=== PATIENT | female | born 1980 | race Caucasian/White ===

== ENCOUNTER 2017-02-15 01:22 | Emergency (ER) | payer BC ==
[~2017-02-15] VITALS: Ht 154.9 cm; Wt 39.1 kg
[~2017-02-15 01:22] MED LIST: BACITAB PO; FLUC10TA PO; LEVA1TAB2 PO; TOPA100T12 PO; TOPA50TA8 PO; bentyl PO; cipro PO
[2017-02-15] MEDS ORDERED: KETOROLAC 30 MG/ML VIAL (J1885) IV ONE (01:30)
[2017-02-15 01:49] LABS: BASO # 0.1 K/mm3 (0.0-0.2); BASO % 1.4 % (0.0-1.0); EOS # 0.1 K/mm3 (0.0-0.50); EOS % 1.4 % (0.0-3.0); LARGE UNSTAINED CELL # 0.1 K/mm3 (0.0-0.4); LARGE UNSTAINED CELL % 2.2 % (0.0-4.0); LYMPH # 3.2 K/mm3 (1.5-4.5); LYMPH % 46.4 % (24.0-44.0); MEAN CORPUSCULAR HEMOGLOBIN 30.4 pg (27.0-33.0); MEAN CORPUSCULAR VOLUME 92.1 fl (80.0-96.0); MONO # 0.4 K/mm3 (0.0-0.8); MONO % 5.8 % (0.0-5.0); NEUTROPHILS # 2.8 K/mm3 (1.8-7.7); NEUTROPHILS % 42.8 % (36.0-66.0); PLATELET COUNT, AUTOMATED 295 k/mm3 (150-450); RED CELL DISTRIBUTION WIDTH 12.5 % (11.5-14.5); WHITE BLOOD COUNT 6.6 K/mm3 (4.0-10.0)
[2017-02-15 02:04] LABS: CONTROL LINE HCG INT CTR LINE PRESENT
[2017-02-15 02:12] LABS: ALBUMIN 4.4 GM/DL (3.2-5.2); ALBUMIN/GLOBULIN RATIO 1.42 (1.00-1.93); ALKALINE PHOSPHATASE 33 U/L (45-117); ALT/SGPT 20 U/L (12-78); AMYLASE 86 U/L (25-115); ANION GAP 7 MEQ/L (8-16); AST/SGOT 9 U/L (15-37); BILIRUBIN,DIRECT < 0.1 MG/DL (0.0-0.2); BILIRUBIN,TOTAL 0.2 MG/DL (0.2-1.0); BLOOD UREA NITROGEN 18 MG/DL (7-18); CALCIUM LEVEL 8.8 MG/DL (8.5-10.1); CARBON DIOXIDE LEVEL 25 MEQ/L (21-32); CHLORIDE LEVEL 109 MEQ/L (98-107); CREATININE FOR GFR 0.94 MG/DL (0.55-1.02); GLOMERULAR FILTRATION RATE > 60.0 (>60); GLUCOSE, FASTING 101 MG/DL (70-105); POTASSIUM SERUM 3.1 MEQ/L (3.5-5.1); SODIUM LEVEL 141 MEQ/L (136-145); TOTAL PROTEIN 7.5 GM/DL (6.4-8.2)
[2017-02-15] MEDS ORDERED: ONDANSETRON 4MG/2ML VIAL (J2405) As Ordered ONE (02:20)
--- NOTE | 2017-02-15 02:20 | REPUSA ---
CLINICAL HISTORY: Abdominal pain. TECHNIQUE: Multiple axial, sagittal and coronal CT images were obtained through the abdomen and pelvi s without administration of oral or IV contrast material. COMMENTS: Fluid filled small bowel loops in the pelvis. The liver is of uniform attenuation without mass or defect. There is no intra or extrahepatic biliary ductal dilatation. The spleen is normal. The gallbladder is within normal limits. The pancreas is of normal contour and attenuation characteristics. There is no evidence of adrenal mass. The kidneys are normal in size, shape and configuration. No renal or ureteral calculi are identified. There is no hydroureter or hydronephrosis. There is no evidence for appendicitis. There is no bowel wall thickening. No evidence for small or la rge bowel obstruction. There is no evidence of abdominal ascites or lymphadenopathy. There is no evidence of intrinsic or extrinsic bladder mass. There is no pelvic ascites or lymphadeno emmy. Images of the lung bases show no evidence of pleural or parenchymal mass. There are no pleural effusi ons. The bony structures are free of lytic or blastic lesions. Multilevel degenerative changes are seen in volving the thoracolumbar spine. Scattered calcifications are seen involving the aorta and major branches compatible with atherosclero sis. IMPRESSION: Fluid filled small bowel loops in the pelvis. Ileus versus developing enteritis. Thank you for your kind referral of this patient.
[2017-02-15] MEDS ORDERED: METOCLOPRAMIDE INJ 10MG/2ML VIAL (J2765) IV ONE ×2 (02:30→04:45)
[2017-02-15] MEDS ORDERED: NS 1,000 ML IV ONE ×2 (02:30→04:15)
[2017-02-15] MEDS ORDERED: ONDANSETRON 4MG/2ML VIAL (J2405) IV ONE (02:45)
[2017-02-15] MEDS ORDERED: MORPHINE 2 MG/ML 1ML SYRINGE IV ONE (02:45)
[2017-02-15] MEDS ORDERED: DOXY100C (02:59)
[2017-02-15] MEDS ORDERED: DICYCLOMINE 10 MG CAP PO ONE (04:00)
[2017-02-15] MEDS ORDERED: HYDROmorphone HCL 1 MG/ML SYRINGE (J1170) IV ONE (04:15)
[2017-02-15] MEDS ORDERED: TAMSULOSIN 0.4 MG CAP PO ONE (06:15)
[2017-02-15] MEDS ORDERED: ZOFR4TAB3 PO (07:53)
[2017-02-15] MEDS ORDERED: REGL10TA6 PO (07:54)
[2017-02-15] MEDS ORDERED: CITRSOL8 PO (07:55)
[2017-02-15] MEDS ORDERED: KETO10TAB PO (07:56)
[2017-02-15 08:05] VITALS: BP 88/59
== END 2017-02-15 08:07 | disposition home or self-care (01) ==
LOC: M ED 01:22
DX: R10.31 Right lower quadrant pain (principal); R11.0 Nausea; E03.9 Hypothyroidism, unspecified; Z79.899 Other long term (current) drug therapy
CPT/HCPCS: 74176; 80048; 80076; 81001; 82150; 83690; 84703; 85025; 87086; 96361; 96374; 96375; 96376; 99283; J1170; J1885; J2405; J2765

== ENCOUNTER → 2017-08-30 | Outpatient (CLI) | payer BC, OTHER ==
[2017-08-31 08:07] LABS: HERPES ZOSTER, VARICELLA IgG <135 index (Immune >165)
== END ==
LOC: M LAB 04:06
DX: Z02.0 Encounter for examination for admission to educational institution (principal)
CPT/HCPCS: 86787

== ENCOUNTER → 2017-12-18 | Outpatient (CLI) | payer BC, OTHER | LOC: M WUC 12:01 | DX: M54.6 Pain in thoracic spine (principal) | CPT/HCPCS: 72072 ==

== ENCOUNTER → 2018-03-05 | Outpatient (REF) | payer BC, OTHER ==
[2018-03-05 16:26] LABS: ESTRADIOL 22.8 PG/ML; PROGESTERONE 6.4 NG/ML
[2018-03-05 18:24] LABS: ANION GAP 9 MEQ/L (8-16); BLOOD UREA NITROGEN 20 MG/DL (7-18); CALCIUM LEVEL 9.6 MG/DL (8.5-10.1); CARBON DIOXIDE LEVEL 24 MEQ/L (21-32); CHLORIDE LEVEL 109 MEQ/L (98-107); FREE T4 1.05 NG/DL (0.76-1.46); GLOMERULAR FILTRATION RATE > 60.0 (>60); GLUCOSE, FASTING 87 MG/DL (70-100); POTASSIUM SERUM 4.5 MEQ/L (3.5-5.1); SODIUM LEVEL 142 MEQ/L (136-145); THYROID STIMULATING HORMONE 0.924 uIU/ML (0.358-3.740)
== END ==
LOC: M LABDRAW1 14:32
DX: N76.1 Subacute and chronic vaginitis (principal); R61 Generalized hyperhidrosis
CPT/HCPCS: 84443

== ENCOUNTER 2018-04-19 14:55 | Emergency (ER) | payer BC, OTHER ==
[2018-04-19] MEDS: NS 1,000 ML IV (15:35)
[2018-04-19] MEDS: KETOROLAC 30 MG/ML VIAL (J1885) IV (15:36)
[2018-04-19] MEDS: ONDANSETRON 4MG/2ML VIAL (J2405) IV (15:36)
[2018-04-19 15:57] LABS: BASO # 0.1 10^3/uL (0.0-0.2); BASO % 0.7 % (0.0-1.0); EOS # 0.1 10^3/uL (0.0-0.50); EOS % 0.7 % (0.0-3.0); HEMATOCRIT 43.9 % (36.0-47.0); HEMOGLOBIN 14.4 g/dl (12.0-15.5); IMMATURE GRANULOCYTE % 0.4 % (0-3.0); LYMPH # 3.4 10^3/uL (1.5-4.5); LYMPH % 34.6 % (24.0-44.0); MEAN CORPUSCULAR HEMOGLOBIN 30.1 pg (27.0-33.0); MEAN CORPUSCULAR HGB CONC 32.8 g/dl (32.0-36.5); MEAN CORPUSCULAR VOLUME 91.6 fl (80.0-96.0); MONO # 0.7 10^3/uL (0.0-0.8); MONO % 7.4 % (0.0-5.0); NEUTROPHILS # 5.5 10^3/uL (1.8-7.7); NEUTROPHILS % 56.2 % (36.0-66.0); PLATELET COUNT, AUTOMATED 298 10^3/uL (150-450); RED BLOOD COUNT 4.79 10^6/uL (4.00-5.40); RED CELL DISTRIBUTION WIDTH 12.6 % (11.5-14.5); WHITE BLOOD COUNT 9.8 10^3/uL (4.0-10.0)
[2018-04-19 16:14] LABS: KETONE, URINE AUTO RFX NEGATIVE (NEGATIVE); LEUKOCYTE ESTERASE UR AUTO RFX NEGATIVE (NEGATIVE); NITRITE, URINE AUTO RFX NEGATIVE (NEGATIVE); RBC, URINE AUTO RFX 7 /HPF (0-3); SPECIFIC GRAVITY UR AUTO RFX 1.005 (1.002-1.035); SQUAM EPITHELIAL CELL UR AURFX 0 /HPF (0-6); WBC, URINE AUTO RFX 1 /HPF (0-3)
[2018-04-19 16:27] LABS: ALBUMIN 4.7 GM/DL (3.2-5.2); ALBUMIN/GLOBULIN RATIO 1.52 (1.00-1.93); ALKALINE PHOSPHATASE 39 U/L (45-117); ALT/SGPT 22 U/L (12-78); AMYLASE 73 U/L (25-115); ANION GAP 11 MEQ/L (8-16); AST/SGOT 15 U/L (7-37); BILIRUBIN,DIRECT < 0.1 MG/DL (0.0-0.2); BILIRUBIN,TOTAL 0.2 MG/DL (0.2-1.0); BLOOD UREA NITROGEN 14 MG/DL (7-18); CALCIUM LEVEL 9.6 MG/DL (8.5-10.1); CARBON DIOXIDE LEVEL 24 MEQ/L (21-32); CHLORIDE LEVEL 109 MEQ/L (98-107); CREATININE FOR GFR 0.91 MG/DL (0.55-1.30); GLOMERULAR FILTRATION RATE > 60.0 (>60); GLUCOSE, FASTING 94 MG/DL (70-100); LIPASE 228 U/L (73-393); SODIUM LEVEL 144 MEQ/L (136-145); TOTAL PROTEIN 7.8 GM/DL (6.4-8.2)
== END 2018-04-19 16:59 | disposition home or self-care (01) ==
LOC: M ED 14:55
DX: R10.11 Right upper quadrant pain (principal); R10.31 Right lower quadrant pain; R11.0 Nausea; G43.909 Migraine, unspecified, not intractable, without status migrainosus; Z79.899 Other long term (current) drug therapy
CPT/HCPCS: J2405

== ENCOUNTER 2018-09-09 10:19 | Emergency (ER) | payer BC, OTHER ==
[~2018-09-09] VITALS: Ht 154.9 cm; Wt 43.6 kg
[~2018-09-09 10:19] MED LIST changes: +CITRSOL8 PO; +DOXY100C; +ESTR62CR; +KETO10TAB PO; +REGL10TA6 PO; +ZOFR4TAB14 PO
[2018-09-09] MEDS ORDERED: NAPROXEN 250 MG TAB PO ONE (11:15)
[2018-09-09] MEDS ORDERED: ONDANSETRON 4 MG ORAL DISINTEGRATING TAB (Q0162 PER 1MG) PO ONE (12:00)
[2018-09-09] MEDS ORDERED: NORCO, ANEXSIA 5/325MG TABLET (HYDROcodone/ACETAMINOPHEN) PO ONE (12:00)
[2018-09-09] MEDS ORDERED: AUGM875T28 PO (12:54)
--- NOTE | 2018-09-09 12:54 | REP ---
LEFT FOREARM: 09/09/2018. Clinical history: Injury to forearm. Findings: No prior study. The radius and ulna were intact and without fracture or focal lesion. There is some soft tissue swelling over the dorsal aspect of the mid forearm on the lateral view. No radiopaque foreign body or abnormal soft-tissue calcification. Visualized portion of elbow and wrist intact. Impression: 1. Minor soft tissue swelling dorsal aspect of the mid forearm but no underlying bony abnormality, foreign body, avulsion or abnormal calcification. Electronically Signed by David Mcelroy MD 09/09/2018 12:46 P
[2018-09-09] MEDS ORDERED: NAPR-885 PO (12:55)
[2018-09-09] MEDS ORDERED: BACT2CRE TOP (12:57)
[2018-09-09] MEDS ORDERED: NEOSPORIN TOP OINT 15GM TOP ONE (13:00)
[2018-09-09 13:03] VITALS: BP 102/54
== END 2018-09-09 13:08 | disposition home or self-care (01) ==
LOC: M ED 10:19
DX: S51.802A Unspecified open wound of left forearm, initial encounter (principal); S50.12XA Contusion of left forearm, initial encounter; W54.0XXA Bitten by dog, initial encounter; Y92.018 Other place in single-family (private) house as the place of occurrence of the external cause
CPT/HCPCS: 73090; 99283; Q0162

== ENCOUNTER → 2019-05-12 | Outpatient (REF) | payer BC, OTHER ==
[~2019-05-12] MED LIST changes: +AUGM875T28 PO; +BACT2CRE TOP; +NAPR-885 PO
== END ==
LOC: M LAB REF 08:44
PROVIDERS: ATTEND Physician Assistant Medical
DX: J02.9 Acute pharyngitis, unspecified (principal)

== ENCOUNTER 2019-05-23 13:38 | Emergency (ER) | payer BC, OTHER ==
[~2019-05-23] VITALS: Ht 154.9 cm; Wt 44.1 kg
[2019-05-23] MEDS ORDERED: SPIR-10 (13:45)
[2019-05-23] MEDS ORDERED: NARA2.5T (13:45)
[2019-05-23] MEDS ORDERED: CLON0.5T8 (13:45)
[2019-05-23] MEDS ORDERED: ONDANSETRON 4MG/2ML VIAL (J2405) As Ordered ONE (14:26)
[2019-05-23] MEDS ORDERED: ONDANSETRON 4MG/2ML VIAL (J2405) IV ONE (14:30)
[2019-05-23 14:38] LABS: BASO # 0.1 10^3/uL (0.0-0.2); BASO % 0.9 % (0.0-1.0); EOS # 0.1 10^3/uL (0.0-0.5); EOS % 0.7 % (0.0-3.0); HEMATOCRIT 40.3 % (36.0-47.0); HEMOGLOBIN 12.9 g/dl (12.0-15.5); LYMPH # 2.6 10^3/uL (1.5-5.0); LYMPH % 31.7 % (24.0-44.0); MEAN CORPUSCULAR HEMOGLOBIN 29.4 pg (27.0-33.0); MEAN CORPUSCULAR VOLUME 91.8 fl (80.0-96.0); MONO # 0.6 10^3/uL (0.0-0.8); MONO % 7.6 % (0.0-5.0); NEUTROPHILS # 4.8 10^3/uL (1.5-8.5); PLATELET COUNT, AUTOMATED 278 10^3/uL (150-450); RED BLOOD COUNT 4.39 10^6/uL (4.00-5.40); WHITE BLOOD COUNT 8.1 10^3/uL (4.0-10.0)
[2019-05-23] MEDS ORDERED: KETOROLAC 30 MG/ML VIAL (J1885) IV ONE (15:00)
[2019-05-23 15:02] LABS: ALBUMIN 4.3 GM/DL (3.2-5.2); ALT/SGPT 25 U/L (12-78); BILIRUBIN,DIRECT < 0.1 MG/DL (0.0-0.2); BILIRUBIN,TOTAL 0.2 MG/DL (0.2-1.0); BLOOD UREA NITROGEN 15 MG/DL (7-18); CALCIUM LEVEL 9.6 MG/DL (8.5-10.1); CARBON DIOXIDE LEVEL 29 MEQ/L (21-32); CHLORIDE LEVEL 107 MEQ/L (98-107); CREATININE FOR GFR 0.88 MG/DL (0.55-1.30); GLOMERULAR FILTRATION RATE > 60.0 (>60); GLUCOSE, FASTING 99 MG/DL (70-100); LIPASE 245 U/L (73-393); POTASSIUM SERUM 3.6 MEQ/L (3.5-5.1); SODIUM LEVEL 141 MEQ/L (136-145); TOTAL PROTEIN 7.1 GM/DL (6.4-8.2)
[2019-05-23] MEDS ORDERED: ISOVUE-370 76% 100ML VIAL (Q9967) As Ordered ONE (16:19)
[2019-05-23] MEDS ORDERED: METOCLOPRAMIDE INJ 10MG/2ML VIAL (J2765) IV ONE (16:45)
--- NOTE | 2019-05-23 16:45 | REP ---
RIGHT UPPER QUADRANT ULTRASOUND: Real-time sonographic evaluation of the right upper quadrant performed and compared to prior study of 04/19/2018. The gallbladder demonstrates no evidence of intraluminal sludge or calculi, wall thickening or pericholecystic fluid. There is no intrahepatic or extrahepatic biliary dilatation, common bile duct measuring 2 mm. The liver and pancreas demonstrate homogeneous echotexture with no gross mass. Right kidney demonstrates a length of 9.3 cm. There is mild prominence of the renal pelvis, which is unchanged since the prior exam. No free fluid is seen. IMPRESSION: Essentially negative pelvic ultrasound. Electronically Signed by Jim Jones MD 05/23/2019 06:06 P
[2019-05-23 17:17] VITALS: BP 97/59
--- NOTE | 2019-05-23 17:27 | REP ---
REASON FOR EXAM: Right upper quadrant pain. COMPARISON: Multiple, 03/12/2014 and 01/26/2017. CONTRAST TODAY: 100 mL [id number] . The lung bases are clear. The liver, gallbladder spleen, pancreas, adrenal glands and kidneys are within normal limits. The abdominal aorta and paraaortic regions are within normal limits. The bowel loops and their mesenteries are within normal limits. There is no free fluid or free air. The duodenum is fluid filled. This is unchanged from the examination of 03/12/2014. CT PELVIS: There is a small amount of free fluid in the pelvis. This is probably physiologic. The pelvic bowel loops and their mesenteries are within normal limits. There is no evidence of a pelvic mass or adenopathy. The amount of free fluid in the pelvis is similar to that seen on the 03/12/2014 exam. Bone window technique throughout the exam shows no significant change in the appearance of the osseous structures. IMPRESSION:There was no evidence of acute intraabdominal or intrapelvic disease. Findings as described above. A small amount of free pelvic fluid probably physiologic. The exam is limited due to the fact no oral bowel preparatory contrast was administered. There is some fluid in the duodenum but it is unchanged in the appearance compared to 03/12/2014. There is no periduodenal fatty infiltration. Electronically Signed by Christiano Sutton DO 05/24/2019 10:23 A
[2019-05-23] MEDS ORDERED: ONDA4TAB6 PO (17:28)
[2019-05-23] MEDS ORDERED: NIFE10CA2 PO (17:28)
== END 2019-05-23 17:43 | disposition home or self-care (01) ==
LOC: M ED 13:38
DX: R10.11 Right upper quadrant pain (principal); G43.909 Migraine, unspecified, not intractable, without status migrainosus; G89.29 Other chronic pain; R10.2 Pelvic and perineal pain; R19.07 Generalized intra-abdominal and pelvic swelling, mass and lump; Z79.899 Other long term (current) drug therapy
CPT/HCPCS: 74177; 76705; 80048; 80076; 81001; 83690; 85025; 96374; 96375; 99284; J1885; J2405; J2765; Q9967

== ENCOUNTER → 2019-11-10 | Outpatient (REF) | payer OTHER ==
[~2019-11-10] MED LIST changes: +CLON0.5T2; +NARA2.5T; +NIFE10CA2 PO; +ONDA4TAB6 PO; +SPIR-10
== END ==
LOC: M LAB REF 16:41
PROVIDERS: ATTEND Physician Assistant
DX: R05 Cough (principal)
CPT/HCPCS: 87486; 87581; 87633; 87798; U0002

== ENCOUNTER 2020-01-21 06:44 | Emergency (ER) | payer BC, OTHER ==
[~2020-01-21] VITALS: Ht 154.9 cm; Wt 44.5 kg
[2020-01-21] MEDS ORDERED: VALA1TAB5 (06:52)
[2020-01-21] MEDS ORDERED: HYDR-3713 (06:52)
[2020-01-21] MEDS ORDERED: ONDA-83 (06:52)
[2020-01-21] MEDS ORDERED: ALDA25TA2 PO (06:52)
[2020-01-21] MEDS ORDERED: ONDANSETRON 4 MG ORAL DISINTEGRATING TAB PO ONE (07:30)
[2020-01-21] MEDS ORDERED: ACETAMINOPHEN 325 MG TAB PO ONE (09:15)
[2020-01-21 10:38] VITALS: BP 112/64
--- NOTE | 2020-01-21 11:39 | REP ---
PELVIC ULTRASOUND: Real-time sonographic evaluation of the pelvis is performed utilizing transabdominal and endovaginal technique. Bladder measures 6.6 x 4.3 x 8.8. The patient has had a prior hysterectomy. Right ovary measures 3.1 x 2.1 x 2.0 cm and contains a dominant follicle 1.4 cm in diameter. Left ovary measures 1.8 x 1.9 x 1.9 cm and contains an 8 mm follicle. There is no evidence of ovarian torsion with duplex Doppler evaluation. There is no other evidence of adnexal mass or free fluid. IMPRESSION: Essentially negative pelvic ultrasound. Dominant follicle right ovary 1.4 cm. No torsion. Electronically Signed by Jim Jones MD 01/21/2020 05:08 P
== END 2020-01-21 10:39 | disposition home or self-care (01) ==
LOC: M ED 06:44
DX: R10.9 Unspecified abdominal pain (principal); N13.30 Unspecified hydronephrosis; G43.909 Migraine, unspecified, not intractable, without status migrainosus; Z79.899 Other long term (current) drug therapy
CPT/HCPCS: 76830; 76856; 81001; 87086; 93976; 99283; Q0162

== ENCOUNTER → 2020-08-07 | Outpatient (CLI) | payer SELFPAY ==
[~2020-08-07] MED LIST changes: +ALDA25TA2 PO; +HYDR-3713; +ONDA-83; +VALA1TAB5
== END ==
LOC: M LABSMTC 10:08
PROVIDERS: ATTEND Pediatrics
DX: Z20.828 Contact with and (suspected) exposure to other viral communicable diseases (principal)

== ENCOUNTER → 2020-08-11 | Outpatient (CLI) | payer BC, OTHER | LOC: M LABSMTC 12:30 | PROVIDERS: ATTEND Pediatrics | DX: Z20.828 Contact with and (suspected) exposure to other viral communicable diseases (principal) ==

== ENCOUNTER → 2020-12-28 | Outpatient (REF) | payer OTHER | LOC: M LAB REF 17:31 | PROVIDERS: ATTEND Physician Assistant | DX: L03.032 Cellulitis of left toe (principal) ==

== ENCOUNTER → 2021-02-09 | Outpatient (CLI) | payer BC, OTHER ==
[2021-02-09 19:39] LABS: ESTRADIOL 76.6 PG/ML; FOLLICLE STIMULATING HORMONE 3.9 mIU/mL; LUTEINIZING HORMONE 0.6 mIU/mL; PROGESTERONE 6.97 NG/ML
== END ==
LOC: M LAB 18:01
PROVIDERS: ATTEND Obstetrics & Gynecology
DX: N95.1 Menopausal and female climacteric states (principal); E34.9 Endocrine disorder, unspecified; F52.0 Hypoactive sexual desire disorder

== ENCOUNTER → 2021-03-01 | Outpatient (CLI) | payer BC, OTHER ==
[2021-03-01 14:43] LABS: HEPATITIS B CORE ANTIBODY IGM NEGATIVE (NEGATIVE); HEPATITIS B SURFACE ANTIBODY POSITIVE (POSITIVE); HEPATITIS B SURFACE ANTIGEN NEGATIVE (NEGATIVE)
== END ==
LOC: M PLALAB 10:11
PROVIDERS: ATTEND Family Medicine
DX: Z00.00 Encounter for general adult medical examination without abnormal findings (principal)

== ENCOUNTER → 2021-03-03 | Outpatient (CLI) | payer BC, OTHER ==
[2021-03-05 05:37] LABS: MUMPS VIRUS IgG ANTIBODY 24.4 AU/mL (Immune >10.9)
== END ==
LOC: M PLALAB 14:31
PROVIDERS: ATTEND Physician Assistant
DX: Z02.1 Encounter for pre-employment examination (principal)

== ENCOUNTER → 2021-03-08 | Outpatient (CLI) | payer SELFPAY | LOC: M LABSMTC 10:41 | PROVIDERS: ATTEND Pediatrics | DX: Z20.822 Contact with and (suspected) exposure to COVID-19 (principal) ==

== ENCOUNTER → 2022-03-01 | Outpatient (REF) | payer OTHER ==
[~2022-03-01] MED LIST changes: -DOXY100C; +DOXY100C3
== END ==
LOC: M LAB REF 18:22
PROVIDERS: ATTEND Physician Assistant
DX: N76.0 Acute vaginitis (principal)

== ENCOUNTER → 2023-12-29 | Outpatient (REF) | LOC: M LAB 14:33 | PROVIDERS: ATTEND Nurse Practitioner Adult Health | DX: Z02.1 Encounter for pre-employment examination (principal) ==

== ENCOUNTER → 2024-08-12 | Outpatient (REF) ==
[~2024-08-12] MED LIST changes: -NIFE10CA2 PO; +NIFE10CA61 PO; +ONDA-282 PO; -ONDA4TAB6 PO
[2024-08-15 12:34] LABS: QuantiFERON-TB Gold Plus POSITIVE (NEGATIVE)
== END ==
LOC: M LAB 13:14
PROVIDERS: ATTEND Family Medicine
DX: Z01.89 Encounter for other specified special examinations (principal)

== ENCOUNTER → 2024-08-20 | Outpatient (REF) | payer OTHER | LOC: M RAD 08-19 16:35 | PROVIDERS: ATTEND Family Medicine | DX: Z00.00 Encounter for general adult medical examination without abnormal findings (principal) ==

== ENCOUNTER → 2024-12-19 | Outpatient (REF) | LOC: M LAB 10:58 | PROVIDERS: ATTEND Nurse Practitioner Adult Health | DX: Z01.89 Encounter for other specified special examinations (principal) ==

== ENCOUNTER → 2024-12-25 | Outpatient (CLI) | payer BC ==
[2024-12-25 20:30] LABS: FOLLICLE STIMULATING HORMONE 5.4 mIU/ML; LUTEINIZING HORMONE 4.1 mIU/ML
[2024-12-26 07:04] LABS: PROGESTERONE 4.8 NG/ML
== END ==
LOC: M LAB 19:04
PROVIDERS: ATTEND Obstetrics & Gynecology
DX: E34.9 Endocrine disorder, unspecified (principal); F52.0 Hypoactive sexual desire disorder; R53.83 Other fatigue